=== PATIENT | female | born 1950 | race Caucasian/White ===

== ENCOUNTER 2017-01-29 17:06 | Emergency (ER) | payer MEDICARE, BC ==
[~2017-01-29] VITALS: Ht 172.7 cm; Wt 66.0 kg
[2017-01-29] MEDS ORDERED: TORADOL PO (17:54)
[2017-01-29] MEDS ORDERED: PERCOCET 5/325M1 TAB PO (17:54)
[2017-01-29 18:01] VITALS: BP 135/75
== END 2017-01-29 18:45 | disposition home or self-care (01) ==
LOC: ED 17:06
PROC: 2W3PX1Z Immobilization of Left Upper Leg using Splint (ICD-10-PCS; principal; 2017-01-29)
DX: S82.042A Displaced comminuted fracture of left patella, initial encounter for closed fracture (principal); M25.462 Effusion, left knee; W01.0XXA Fall on same level from slipping, tripping and stumbling without subsequent striking against object, initial encounter; Y93.01 Activity, walking, marching and hiking; Y92.520 Airport as the place of occurrence of the external cause
CPT/HCPCS: L1830